=== PATIENT | male | born 1960 | race Caucasian/White ===

== ENCOUNTER 2018-08-13 09:20 | Emergency (ER) | payer OTHER ==
[~2018-08-13] VITALS: Ht 172.7 cm; Wt 84.0 kg
[~2018-08-13 09:20] MED LIST: BENA10TA4 PO; HYDR-3241 PO; LEVO125T5 PO; ROSU10TA PO
[2018-08-13 09:23] VITALS: BP 159/85
[2018-08-13] MEDS ORDERED: DIPH,PERTUSS(ACELL),TET VAC/PF 0.5 ML IM-VACC ONE ×2 (09:41→10:00)
== END 2018-08-13 10:18 | disposition home or self-care (01) ==
LOC: ED 10:12
DX: S61.205A Unspecified open wound of left ring finger without damage to nail, initial encounter (principal); E03.9 Hypothyroidism, unspecified; I10 Essential (primary) hypertension; E78.00 Pure hypercholesterolemia, unspecified; Z90.49 Acquired absence of other specified parts of digestive tract; F17.200 Nicotine dependence, unspecified, uncomplicated; W27.8XXA Contact with other nonpowered hand tool, initial encounter; Y93.89 Activity, other specified; Y99.0 Civilian activity done for income or pay; Y92.69 Other specified industrial and construction area as the place of occurrence of the external cause
CPT/HCPCS: 90471; 90715

== ENCOUNTER 2020-03-08 13:37 | Emergency (ER) | payer OTHER ==
[~2020-03-08] VITALS: Ht 172.7 cm; Wt 82.9 kg
--- NOTE | 2020-03-08 13:56 | NUR ---
PT RESTING IN [facility], CHANGED INTO GOWN, CALL LIGHT WITHIN REACH, CHANTELLE JAVIER AT BEDSIDE EVAL AND DISCUSSING PLAN OF CARE, NAD, DENIES ADDITIONAL NEEDS, GIRLFRIEND AT BEDSIDE. SHANKAR
[2020-03-08 14:16] VITALS: BP 133/73
[2020-03-08] MEDS ORDERED: APIXABAN 5 MG TABLET ONE (14:18)
[2020-03-08] MEDS ORDERED: APIXABAN 5 MG TABLET PO ONE (14:30)
== END 2020-03-08 14:23 | disposition home or self-care (01) ==
LOC: ED 14:19
DX: I82.411 Acute embolism and thrombosis of right femoral vein (principal); I82.431 Acute embolism and thrombosis of right popliteal vein; I10 Essential (primary) hypertension; E78.00 Pure hypercholesterolemia, unspecified; E03.9 Hypothyroidism, unspecified; F17.200 Nicotine dependence, unspecified, uncomplicated
CPT/HCPCS: 99283

== ENCOUNTER → 2020-03-08 | Outpatient (CLI) | payer OTHER ==
[~2020-03-08] MED LIST changes: -BENA10TA4 PO; +BENA10TA59 PO; -ROSU10TA PO; +ROSU10TA2 PO
== END | disposition home or self-care (01) ==
LOC: RAD 12:46
PROVIDERS: ATTEND Family Medicine
DX: I82.4Z1 Acute embolism and thrombosis of unspecified deep veins of right distal lower extremity (principal); M79.89 Other specified soft tissue disorders